=== PATIENT | male | born 1940 | race Caucasian/White ===

== ENCOUNTER 2016-10-25 12:57 | Emergency (ER) | payer OTHER ==
[~2016-10-25] VITALS: Ht 182.9 cm; Wt 86.2 kg
--- NOTE | 2016-10-25 13:05 | NUR ---
PT BIBRA FROM HOME TO ER BED 14. PER REPORT MECHANICAL TRIP AND FALL ON A WATER SPRINKLER AND HIT THE CURB. PRESENTS W/ FACIAL ABRASION AND UPPER LIP LAC AND A BROKEN CENTRAL INCISOR. PT DENIES KO. PT IS AAO, DENIES CHEST PAIN. AWAITING MD ASHRAF.
--- NOTE | 2016-10-25 13:49 | NUR ---
SUREKHA TEENAGE PROGRAM DIRECTOR AT BEDSIDE FOR EVAL.
[2016-10-25] MEDS ORDERED: TDAP [DIPH/PERTUSSIS/TET] 0.5 ML VIAL IM ONE ×2 (14:00→14:16)
--- NOTE | 2016-10-25 14:19 | NUR ---
PT GIVEN TDAP. LOT [id number] EXP 02/07/18
--- NOTE | 2016-10-25 15:30 | NUR ---
SUREKHA AT BEDSIDE FOR LIP LAC REPAIR.
--- NOTE | 2016-10-25 16:03 | NUR ---
LAC REPAIR DONE. 2 SUTES NOTED. D/C IN STABLE CONDITION.
[2016-10-25 16:04] VITALS: BP 124/77
== END 2016-10-25 16:06 | disposition home or self-care (01) ==
LOC: ER 12:58
DX: S01.511A Laceration without foreign body of lip, initial encounter (principal); E78.5 Hyperlipidemia, unspecified; W22.8XXA Striking against or struck by other objects, initial encounter; Y92.89 Other specified places as the place of occurrence of the external cause; Y93.89 Activity, other specified; Y99.8 Other external cause status
CPT/HCPCS: 12011; 90471; 90715; 99283; A4606; A6402; A6403 ×2; Z7610

== ENCOUNTER 2024-09-25 15:54 | Emergency (ER) | payer OTHER ==
[~2024-09-25] VITALS: Ht 182.9 cm; Wt 74.8 kg
[2024-09-25 16:26] VITALS: TEMP 97.9
[2024-09-25 16:37] LABS: PLATELET COUNT (AUTO) 204 K/uL (150-450); RED BLOOD CELL COUNT(AUTO) 3.15 MIL/uL (4.5-6.0); RED CELL DISTRIBUTION WIDTH 16.9 % (11.5-15.0); WHITE BLOOD COUNT (AUTO) 6.1 K/uL (4.3-11.0)
[2024-09-25 16:52] LABS: CALCIUM, SERUM 8.7 mg/dL (8.5-10.1); CREATININE 1.5 mg/dL (0.6-1.3); SODIUM SERUM 146.0 mmol/L (136-145); UREA NITROGEN, BLOOD 31.0 mg/dL (7-18)
[2024-09-25 16:57] LABS: ASPARTATE AMINOTRANSFERASE 10.0 U/L (15-37); TOTAL PROTEIN, SERUM 6.9 g/dL (6.4-8.2)
[2024-09-25 16:59] LABS: INR 1.21 (0.91-1.10)
[2024-09-25 17:32] LABS: BAND % (MANUAL) 1 % (0.0-5.0); LYMPHOCYTES % (MANUAL) 12 % (16-48); MONOCYTES % (MANUAL) 9 % (0-11.0); NEUTROPHILS % (MANUAL) 78 (42-76); PLATELET ESTIMATE ADEQUATE
[2024-09-25 17:41] VITALS: BP 120/64; O2SAT 98
== END 2024-09-25 17:41 | disposition home or self-care (01) ==
LOC: ER 16:06
DX: D64.9 Anemia, unspecified (principal); I12.9 Hypertensive chronic kidney disease with stage 1 through stage 4 chronic kidney disease, or unspecified chronic kidney disease; N18.30 Chronic kidney disease, stage 3 unspecified; I48.91 Unspecified atrial fibrillation; E78.5 Hyperlipidemia, unspecified; M10.9 Gout, unspecified; Z85.038 Personal history of other malignant neoplasm of large intestine; Z95.0 Presence of cardiac pacemaker
CPT/HCPCS: 36415; 80048-TC; 80076-TC; 85027-TC; 85730-TC; 86850-TC